=== PATIENT | female | born 1975 | race Caucasian/White ===

== ENCOUNTER 2017-07-09 20:07 | Emergency (ER) | payer OTHER ==
[2017-07-09 20:54] VITALS: BP 165/107; PULSE 83; TEMP 98.4; BMI 34.2
--- NOTE | 2017-07-09 20:55 | PDOC ---
Rapid Medical Evaluation Time Seen by Provider: 07/09/17 20:47 Medical Evaluation: Allergies Allergy/AdvReac Type Severity Reaction Status Date / Time No Known Allergies Allergy Verified 12/15/13 17:04 07/09/17 20:47 The patient presents with a chief complaint of: High blood pressure and lower abdominal pain, Just found out she was . 06/06 last LMP. H/O uncontrolled HBP on meds I have performed a brief in-person evaluation of this patient. Pertinent physical exam findings: High blood pressure,, suprapubic pain, abdomen is soft, obese, nondistended. Lungs clear. I have ordered the following: urinalysis, urine culture, beta hcg, The patient will proceed to the ED for further evaluation. 07/09/17 20:55 Discharge Disposition - Diagnosis Lower abdominal pain - Referrals - Patient Instructions - Post Discharge Activity
== END 2017-07-09 23:53 | disposition left against medical advice (07) ==
LOC: JER 20:07
DX: O26.891 Other specified pregnancy related conditions, first trimester (principal); R10.30 Lower abdominal pain, unspecified; Z3A.01 Less than 8 weeks gestation of pregnancy; O10.011 Pre-existing essential hypertension complicating pregnancy, first trimester
CPT/HCPCS: 99281-25